=== PATIENT | male | born 1985 | race Caucasian/White ===

== ENCOUNTER 2023-10-27 02:15 | Emergency (ER) | payer OTHER ==
[2023-10-27 02:34] VITALS: TEMP 98.5
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
[2023-10-27 03:21] LABS: Absolute Neutrophil Ct (ANC) 4.96 x10^3/uL (1.78-5.38); BASOPHIL % 1.1 % (0.2-1.2); Basophil (Absolute #) 0.09 x10^3/uL (0.01-0.08); Eosinophil % 1.5 % (0.8-7.0); Eosinophil (Absolute #) 0.13 x10^3/uL (0.04-0.54); Hematocrit 46.7 % (40.1-51.0); Hemoglobin 15.9 g/dL (13.7-17.5); IMMATURE GRAN # 0.04 x10^3u/L (0.001-0.031); IMMATURE GRAN % 0.5 % (0.001-0.429); Lymphocyte (Absolute #) 2.71 x10^3/uL (1.32-3.57); Lymphocytes % 31.8 % (21.8-53.1); Mean Cell Volume 86.8 fL (79.0-92.2); Mean Corpuscular Hemoglobin 29.6 pg (25.7-32.2); Mean Platelet Volume 9.4 fL (9.4-12.4); Monocyte (Absolute #) 0.58 x10^3/uL (0.30-0.82); Monocytes % 6.8 % (5.3-12.2); Neutrophil % 58.3 % (34.0-67.9); Platelet Count 215 x10^3/uL (163-337); Red Blood Count 5.38 x10^6/uL (4.63-6.08); Red Cell Distribution Width 12.5 % (11.6-14.4); White Blood Count 8.5 x10^3/uL (4.23-9.07)
[2023-10-27 03:34] LABS: ALBUMIN 3.8 g/dL (3.5-5.0); ANION GAP 13.1 MEQ/L (5-15); BILIRUBIN,TOTAL 0.8 mg/dL (0.2-1.3); Calcium 9.2 mg/dL (8.4-10.2); Creatinine 1 1.09 mg/dL (0.66-1.25); EST GLOMERULAR FILTRATION RATE 89.1 ML/MIN; MAGNESIUM 2.1 mg/dL (1.6-2.3); Potassium 3.7 mmol/L (3.5-5.1); Total Protein 6.4 g/dL (6.3-8.2)
[2023-10-27] MEDS ORDERED: Sterile H2O 10 ml IJ ONE (03:57)
[2023-10-27] MEDS ORDERED: HYDROCODONE-ACETAMIN 2.5-108/5 ML SOLUTION ONE (03:58)
[2023-10-27] MEDS ORDERED: solu-MEDROL ONE (03:58)
[2023-10-27] MEDS: HYDROCODONE-ACETAMIN 2.5-108/5 ML SOLUTION PO STA (04:02)
[2023-10-27] MEDS: solu-MEDROL 125 MG, Sterile H2O 10 ml 2 ML IV ONE (04:02)
--- NOTE | 2023-10-27 04:42 | XRAY ---
CLINICAL HISTORY: Head injury COMPARISON: None. TECHNIQUE: Axial non-contrast CT scan of the brain was performed from the skull base to the high parietal region. One of the following dose reduction techniques were utilized for this exam: Automated exposure control, adjustment of the mA and/or kV according to patient size, use of iterative reconstruction. FINDINGS: Brain Parenchyma: Normal attenuation of the cerebral hemispheres, cerebellum, and brainstem. No evidence of acute infarct, hemorrhage, or mass effect. No abnormal areas of hypo- or hyperattenuation. Ventricular System: Ventricles are normal in size and configuration. No evidence of hydrocephalus or ventricular enlargement. Subarachnoid Spaces: Normal sulci and cisterns. No evidence of subarachnoid hemorrhage or extra-axial fluid collections. Cerebellum and Brainstem: Normal size and signal. No masses, lesions, or areas of abnormal signal. Orbits: Normal appearance of the globes, optic nerves, and extraocular muscles. No evidence of orbital masses or abnormal signal. Sinuses: Minimal mucosal thickening of few ethmoidal air cells. Mastoid Air Cells: Clear mastoid air cells. No evidence of mastoiditis. Skull and Meninges: Normal skull morphology. No evidence of meningeal thickening. Mild extracranial subgaleal hematoma in right high frontal region. IMPRESSION: 1. Normal CT of the head without contrast. 2. Mild extracranial subgaleal hematoma in right high frontal region and possibly in the left parietal region (clinical correlation is needed). Electronically Signed by: Best Ty MD. (10/27/2023 04:38:55 EDT)
[2023-10-27 05:04] VITALS: BP 119/50; PULSE 87; RESP 12
[2023-10-27 05:37] VITALS: O2SAT 98
--- NOTE | 2023-10-27 09:19 | XRAY ---
Indication: Pain following fall. Comparison: None AP/lateral right knee demonstrates small spurring tibial tuberosity. No other bony, articular, or soft tissue abnormalities.
--- NOTE | 2023-10-27 09:19 | XRAY ---
Indication: Cough. Comparison: None Portable chest inflated and clear. Heart not enlarged for AP portable technique. Bony thorax intact. Impression: Nonacute chest.
== END 2023-10-27 06:23 | disposition home or self-care (01) ==
LOC: ED 02:15
DX: R05.9 Cough, unspecified (principal); R55 Syncope and collapse; S09.90XA Unspecified injury of head, initial encounter; R06.02 Shortness of breath; W19.XXXA Unspecified fall, initial encounter; Z79.899 Other long term (current) drug therapy
CPT/HCPCS: 36000; 36415; 70450; 71045; 73560; 80053; 83735; 83880; 85025; 96374; 99284; J2919; A9270-GY

== ENCOUNTER 2023-11-01 16:36 | Emergency (ER) | payer OTHER ==
[2023-11-01 16:52] VITALS: TEMP 96
--- NOTE | 2023-11-01 16:59 | ERPHSYRPT ---
- History of Present Illness Time Seen by Provider: 11/01/23 16:59 Source: patient Exam Limitations: no limitations Patient Subjective Stated Complaint: pt states that he coughs one time and he passes out and today he coughed and passed out and hit the back left side of his head and right elbow Triage Nursing Assessment: Pt was brought to the ER by his mother, vitals wnl, rates pain as 8/10, lump to back left side of neck, abrasions to the right elbow, pulses normal, skin n/w/d, has been to this ER, [facility] and [facility] in the past 2 weeks, no difficulties with breathing Physician History: The patient, with a history of acid reflux managed with omeprazole, presents with a three-week history of recurrent coughing fits leading to syncope. The patient describes the episodes as sudden, occurring after a single, hard cough, and resulting in a brief loss of consciousness lasting about 20-30 seconds. The patient has sustained injuries from these episodes, including a large knot on the back of his head and a swollen right elbow from recent falls. The patient reports no prior history of such episodes. The onset of these symptoms coincided with the patient quitting smoking about a month ago, after a 20-year history of tobacco use. The patient also reports a recent weight loss of 20 pounds since June. The patient has not found any treatments that help stop the coughing fits. He was able to reproduce one of the episodes in the exam room today. Witnessed: by family Prior Episodes: multiple episodes today, recent history Timing/Duration: week(s) (3) Precipitating Factors: other (cough) Context: coughing Loss of Consciousness: brief (seconds) Charcter of event(s): collapsed Allergies/Adverse Reactions: baclofen Allergy (Verified 11/01/23 16:52) Benzodiazepines Allergy (Verified 11/01/23 16:52) citalopram [From Celexa] Allergy (Verified 11/01/23 16:52) Home Medications: Albuterol Sulfate [Proair Respiclick] 90 mcg IH DAILY 10/27/23 [History] Benzonatate 200 mg PO TID 10/27/23 [History] Dextroamphetamine/Amphetamine [Adderall Xr 20 mg Capsule] 60 mg PO DAILY 10/27/23 [History] Hydrocodone/Acetaminophen [Hydrocodone-Acetamin 10-325 mg] 1 each PO QID PRN PRN 10/27/23 [History] Omeprazole 40 mg PO BID 10/27/23 [History] Hx Tetanus, Diphtheria Vaccination/Date Given: Yes Hx Influenza Vaccination/Date Given: No Hx Pneumococcal Vaccination/Date Given: No Travel Risk - International Travel Have you traveled outside of the country in past 3 weeks: No - Emerging Infectious Disease Are you exhibiting symptoms associated with any current EIDs: No Symptoms: Shortness of Breath - Past Medical History Pertinent Past Medical History: Yes Neurological History: No Pertinent History ENT History: No Pertinent History Cardiac History: No Pertinent History Respiratory History: No Pertinent History Endocrine Medical History: No Pertinent History Musculoskeletal History: Fractures GI Medical History: GERD, Hernia History: No Pertinent History Psycho-Social History: Attention Deficit Disorder Male Reproductive Disorders: No Pertinent History Other Medical History: left pinky fractures, chronic back pain - Past Surgical History Past Surgical History: Yes Neuro Surgical History: No Pertinent History Cardiac: No Pertinent History Respiratory: No Pertinent History Gastrointestinal: No Pertinent History Genitourinary: No Pertinent History Musculoskeletal: Orthopedic Surgery Male Surgical History: No Pertinent History Other Surgical History: pins in pinky, endoscope in esophagus - Social History Smoking Status: Former smoker Exposure to second hand smoke: No Drug Use: marijuana - Social Determinants of Health Will the patient participate in the screening: Yes Do you worry about a steady place to live?: No Do you have any problems with any of the following?: No known problems In the past 12 months,have you had to go without utilities?: No Transportation Issues: No Has anyone in your support network made you feel unsafe?: No Have you or anyone in your house had to go without enough: No - Review of Systems All Other Systems: Reviewed and Negative Physical Exam - Nursing Vital Signs Nursing Vital Signs: Initial Vital Signs Temperature 96.0 F 11/01/23 16:42 Pulse Rate 76 11/01/23 16:42 Blood Pressure 121/78 11/01/23 16:42 O2 Sat by Pulse Oximetry 97 11/01/23 16:42 Pain Scale Pain Intensity 0 - Soledad Coma Scale Best Eye Response (Soledad): (4) open spontaneously Best Verbal Response (Yolanda): (5) oriented Best Motor Response (Soledad): (6) obeys commands Soledad Total: 15 - Physical Exam General Appearance: no apparent distress, obese Eye Exam: bilateral eye: normal inspection, PERRL, EOMI Ears, Nose, Throat Exam: normal ENT inspection, pharynx normal Neck Exam: normal inspection, non-tender, supple, full range of motion, other (large neck circumference), No carotid bruit Respiratory: normal breath sounds, lungs clear, airway intact, No respiratory distress Cardiovascular: regular rate/rhythm, normal heart sounds, capillary refill <2 sec Peripheral Pulses: carotid (R): 2+, carotid (L): 2+ Mental Status: alert, oriented x 3, 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 Exam: normal hearing, normal speech, PERRL, tongue midline Coordination/Gait: normal finger to nose, normal gait, normal cerebellar function Motor/Sensory: no motor deficit, no sensory deficit, no pronator drift Skin Exam: normal color, warm, dry SpO2 Interpretation: normal SpO2: 96 O2 Delivery: Room Air - Course Nursing assessment & vital signs reviewed: Yes Ordered Tests: Medication Summary Discontinued Medications Generic Name Dose Route Start Last Admin Trade Name Chitoq PRN Reason Stop Dose Admin Gabapentin 300 mg 11/01/23 17:29 11/01/23 17:42 Gabapentin 300 Mg Capsule PO 11/01/23 17:30 300 mg STAT ONE Administration Metoclopramide HCl 10 mg 11/01/23 17:51 11/01/23 17:58 Metoclopramide Hcl 10 Mg Tablet PO 11/01/23 17:52 10 mg STAT ONE Administration Metoclopramide HCl Confirm 11/01/23 17:55 Metoclopramide Hcl 10 Mg Tablet Administered 11/01/23 17:56 Dose 10 mg .ROUTE .STK-MED ONE - Progress Progress: unchanged Progress Note: Cough Syncope Recent onset of syncope with coughing. Discussed the pathophysiology of cough syncope and the lack of definitive treatment. Proposed trial of Gabapentin based on a study in a respiratory care journal. -Start Gabapentin 300mg daily, increase by 100mg every two weeks as tolerated. -Encouraged weight loss and control of acid reflux as potential mitigating factors. Elbow Injury Recent injury to the right elbow from a fall during a syncopal episode. -Order elbow X-ray to rule out fracture. GERD Patient on Omeprazole 80mg daily for the past two years. -Continue Omeprazole 80mg daily. -Add Reglan based on multiple case studies of patients with cough syncope having cough relief with addition of Reglan to PPI. Outpatient Workup Discussed the need for outpatient workup including carotid ultrasounds and tilt table tests to rule out other causes of syncope. -Encouraged patient to follow up with primary care provider for further workup. NO DRIVING UNTIL THIS IS RESOLVED. Counseled pt/family regarding: diagnosis, need for follow-up Medical Desision Making - Diagnostic Testing Diagnostic test were ordered, analyzed, and reviewed by me: No - Risk of complications The pt has a mod risk of morbidity or mortality based on: Need for prescription drug management - Departure Departure Disposition: Home Clinical Impression: Cough syncope syndrome Condition: Good Critical Care Time: No Referrals: RACHELE CHAVIS [Primary Care Provider] - Follow up/PCP as directed Instructions: Cough, Adult (DC) Additional Instructions: Do not drive or operate heavy machinery. Please follow up with primary care physician for thorough cardiac and neuro evaluation to rule out other underlying causes. Prescriptions: Gabapentin 300 mg PO DAILY 90 Days #90 cap Metoclopramide HCl [Reglan] 10 mg PO TID 30 Days #90 tablet
[2023-11-01] MEDS: NEURONTIN PO ONE (17:42)
[2023-11-01] MEDS ORDERED: Reglan 10 MG ONE (17:55)
[2023-11-01] MEDS: Reglan 10 MG PO ONE (17:58)
[2023-11-01 18:09] VITALS: BP 127/62; PULSE 78; RESP 20
[2023-11-04 07:25] VITALS: O2SAT 96
== END 2023-11-01 18:19 | disposition home or self-care (01) ==
LOC: ED 16:36
DX: R55 Syncope and collapse (principal); R05.9 Cough, unspecified; S10.93XA Contusion of unspecified part of neck, initial encounter; S50.01XA Contusion of right elbow, initial encounter
CPT/HCPCS: 99282; A9270-GY

== ENCOUNTER 2023-12-21 22:46 | Emergency (ER) | payer OTHER ==
[2023-12-21 22:57] VITALS: TEMP 97.6
--- NOTE | 2023-12-21 22:57 | ERPHSYRPT ---
- History of Present Illness Time Seen by Provider: 12/21/23 22:56 Source: patient Exam Limitations: no limitations Physician History: This is a 38-year-old white male patient who within the last couple months for his having coughing spells causing syncopal episodes. On one of the episodes, the patient fell and hit his right elbow. According to the patient, the x-ray was performed at an outside facility and had a chip fracture present. Patient did not have any problems until the last couple of days but he noticed some sudden onset of swelling and mild warmth and thought he better have it evaluated. He comes in to the emergency department today by private vehicle with no fever. He has only mild pain to palpation in the soft tissue swelling around the right elbow. Occurred: days ago (Swelling has increased over the last 2 days), other (The injury occurred several weeks ago.) Method of Injury: direct blow Quality: aching Severity of Pain-Max: mild Severity of Pain-Current: mild Extremities Pain Location: elbow: right (Soft tissue/subcutaneous swelling) Modifying Factors: Improves With: movement Associated Symptoms: none Allergies/Adverse Reactions: baclofen Allergy (Verified 11/01/23 16:52) Benzodiazepines Allergy (Verified 11/01/23 16:52) citalopram [From Celexa] Allergy (Verified 11/01/23 16:52) Home Medications: Albuterol Sulfate [Proair Respiclick] 90 mcg IH DAILY 10/27/23 [History] Benzonatate 200 mg PO TID 10/27/23 [History] Dextroamphetamine/Amphetamine [Adderall Xr 20 mg Capsule] 60 mg PO DAILY 10/27/23 [History] Hydrocodone/Acetaminophen [Hydrocodone-Acetamin 10-325 mg] 1 each PO QID PRN PRN 10/27/23 [History] Omeprazole 40 mg PO BID 10/27/23 [History] Hx Tetanus, Diphtheria Vaccination/Date Given: Yes Hx Influenza Vaccination/Date Given: No Hx Pneumococcal Vaccination/Date Given: No Travel Risk - International Travel Have you traveled outside of the country in past 3 weeks: No - Emerging Infectious Disease Are you exhibiting symptoms associated with any current EIDs: No Symptoms: Shortness of Breath - Review of Systems Constitutional: No Symptoms Eyes: No Symptoms Ears, Nose, & Throat: No Symptoms Respiratory: No Symptoms Cardiac: No Symptoms Abdominal/Gastrointestinal: No Symptoms Genitourinary Symptoms: No Symptoms Musculoskeletal: Injury (Occurred within the last few weeks but no new injury recently), Joint Pain (Soft tissue/skin swelling overlying right elbow joint) Skin: No Symptoms Neurological: No Symptoms Psychological: No Symptoms Endocrine: No Symptoms Hematologic/Lymphatic: No Symptoms Immunological/Allergic: No Symptoms All Other Systems: Reviewed and Negative - Past Medical History Pertinent Past Medical History: Yes Neurological History: No Pertinent History ENT History: No Pertinent History Cardiac History: No Pertinent History Respiratory History: No Pertinent History Endocrine Medical History: No Pertinent History Musculoskeletal History: Fractures GI Medical History: GERD, Hernia History: No Pertinent History Psycho-Social History: Attention Deficit Disorder Male Reproductive Disorders: No Pertinent History Other Medical History: left pinky fractures, chronic back pain - Past Surgical History Past Surgical History: Yes Neuro Surgical History: No Pertinent History Cardiac: No Pertinent History Respiratory: No Pertinent History Gastrointestinal: No Pertinent History Genitourinary: No Pertinent History Musculoskeletal: Orthopedic Surgery Male Surgical History: No Pertinent History Other Surgical History: pins in pinky, endoscope in esophagus - Social History Smoking Status: Former smoker Exposure to second hand smoke: No Drug Use: marijuana - Social Determinants of Health Will the patient participate in the screening: Yes Do you worry about a steady place to live?: No In the past 12 months,have you had to go without utilities?: No Transportation Issues: No Has anyone in your support network made you feel unsafe?: No Have you or anyone in your house had to go without enough: No - Nursing Vital Signs Nursing Vital Signs: Initial Vital Signs Temperature 97.6 F 12/21/23 22:56 Pulse Rate 90 12/21/23 22:56 Respiratory Rate 21 12/21/23 22:56 Blood Pressure 112/71 12/21/23 22:56 O2 Sat by Pulse Oximetry 96 12/21/23 22:56 Pain Scale Pain Intensity 6 - Physical Exam General Appearance: no apparent distress, alert, anxiety, obese Eyes, Ears, Nose, Throat Exam: normal ENT inspection, moist mucous membranes Neck Exam: normal inspection, non-tender, supple, full range of motion Cardiovascular/Respiratory Exam: chest non-tender, no respiratory distress Abdominal Exam: non-tender Back Exam: normal inspection, normal range of motion, No CVA tenderness, No vertebral tenderness Shoulder Exam: normal inspection, non-tender, no evidence of injury, normal ROM Elbow/Forearm Exam: normal ROM, soft tissue tenderness, swelling (Soft tissue swelling overlying right elbow joint. Ballotable with sensation and sound of fluid present) Wrist Exam: normal inspection, non-tender, no evidence of injury, normal ROM Hand Exam: normal inspection, non-tender, no evidence of injury, normal ROM Neuro/Tendon Exam: normal sensation, normal motor functions, normal tendon functions, responds to pain, no evidence tendon injury Mental Status Exam: alert, oriented x 3, cooperative Skin Exam: normal color, warm, dry SpO2 Interpretation: normal O2 Delivery: Room Air - Course Nursing assessment & vital signs reviewed: Yes Ordered Tests: Medication Summary Discontinued Medications Generic Name Dose Route Start Last Admin Trade Name Freq PRN Reason Stop Dose Admin Ceftriaxone Sodium 1,000 mg 12/21/23 23:06 Ceftriaxone Sodium 1000 Mg Inj Vial IM 12/21/23 23:07 STAT ONE Methylprednisolone Sodium 0 mg 12/21/23 23:06 Succinate 125 mg/ Sterile IM 12/21/23 23:07 Water 2 ml STAT ONE - Progress Progress: unchanged, pain not gone completely Progress Note: 12/21/23 23:14 My medical decision making and the assignment of low complexity to this patient's medical issue today is secondary to review of the patient's past medical history, review patient medication list, reviewed patient drug allergy list, history present of some physical findings on examination. The workup in this patient does not require any radiographic or laboratory studies at this time. The plan for him is to provide him with an injection of Rocephin intramuscularly and Solu-Medrol intramuscularly followed by outpatient take-home tablets (number 2 tablets) of oxycodone acetaminophen 5/325. Patient then will follow-up at the orthopedic clinic here at [facility] tomorrow morning, 12/22/2023. Counseled pt/family regarding: diagnosis, need for follow-up Medical Desision Making - Risk of complications Minimal Risk: Minimal risk of morbidity - Departure Departure Disposition: Home Clinical Impression: Bursitis of right elbow Condition: Stable Critical Care Time: No Referrals: RACHELE CHAVIS [Primary Care Provider] - Follow up/PCP as directed Additional Instructions: Follow-up with [facility] orthopedic clinic tomorrow, 12/22/2023, at 8 AM for further evaluation management of your right elbow bursitis.
[2023-12-21] MEDS ORDERED: Rocephin 1000 MG INJ ONE (23:09)
[2023-12-21] MEDS ORDERED: Sterile H2O 10 ml IJ ONE (23:09)
[2023-12-21] MEDS ORDERED: solu-MEDROL ONE (23:09)
[2023-12-21] MEDS ORDERED: XYLOCAINE 1% HCL 20 ML MDV ONE (23:09)
[2023-12-21] MEDS: Rocephin 1000 MG INJ IM ONE (23:18)
[2023-12-21] MEDS: solu-MEDROL 125 MG, Sterile H2O 10 ml 2 ML IM ONE (23:19)
[2023-12-21 23:31] VITALS: BP 112/74; PULSE 98; RESP 20; O2SAT 95
== END 2023-12-21 23:34 | disposition home or self-care (01) ==
LOC: ED 22:46
DX: M70.31 Other bursitis of elbow, right elbow (principal); Z79.899 Other long term (current) drug therapy; M25.521 Pain in right elbow
CPT/HCPCS: 96372; 99283; J0696; J2919

== ENCOUNTER 2024-03-10 00:52 | Observation (INO) | payer OTHER ==
--- NOTE | 2024-03-10 01:15 | ERPHSYRPT ---
- History of Present Illness Time Seen by Provider: 03/10/24 01:14 Historian: patient, family Exam Limitations: no limitations Physician History: This is a an obese 39-year-old white male patient that arrives to the emergency department by private vehicle with complaint of left lower quad abdominal pain with no vomiting or nausea but mild diarrheal episodes. Patient denies fever. Patient denies cough. He does not have bodyaches. Patient has had 5 colonoscopies in the past but no other intra-abdominal procedures. Patient has a history of irritable bowel syndrome, chronic low back pain, ADD and gastroesophageal reflux disease. He denies chest pain and he denies shortness of breath Timing/Duration: hour(s) (24), worse Quality: sharpness Abdominal Pain Onset Location: LLQ Severity of Pain-Max: moderate Severity of Pain-Current: moderate Modifying Factors: Improves With: nothing Associated Symptoms: diarrhea Previous symptoms: no prior history, no recent treatment Allergies/Adverse Reactions: baclofen Allergy (Verified 12/21/23 23:21) Benzodiazepines Allergy (Verified 12/21/23 23:21) citalopram [From Celexa] Allergy (Verified 12/21/23 23:21) Home Medications: Albuterol Sulfate [Proair Respiclick] 90 mcg IH DAILY 10/27/23 [History] Dextroamphetamine/Amphetamine [Adderall Xr 20 mg Capsule] 60 mg PO DAILY 10/27/23 [History] Hydrocodone/Acetaminophen [Hydrocodone-Acetamin 10-325 mg] 1 each PO QID PRN PRN 10/27/23 [History] Omeprazole 40 mg PO BID 10/27/23 [History] Hx Tetanus, Diphtheria Vaccination/Date Given: Yes Hx Influenza Vaccination/Date Given: No Hx Pneumococcal Vaccination/Date Given: No Travel Risk - International Travel Have you traveled outside of the country in past 3 weeks: No - Emerging Infectious Disease Are you exhibiting symptoms associated with any current EIDs: No Symptoms: Shortness of Breath - Review of Systems Constitutional: No Symptoms Eyes: No Symptoms Ears, Nose, & Throat: No Symptoms Respiratory: No Symptoms Cardiac: No Symptoms Abdominal/Gastrointestinal: Abdominal Pain (Left lower quadrant), Diarrhea, Appetite Changes Genitourinary Symptoms: No Symptoms Musculoskeletal: No Symptoms Skin: No Symptoms Neurological: No Symptoms Psychological: No Symptoms Endocrine: No Symptoms Hematologic/Lymphatic: No Symptoms Immunological/Allergic: No Symptoms All Other Systems: Reviewed and Negative - Past Medical History Pertinent Past Medical History: Yes Neurological History: No Pertinent History ENT History: No Pertinent History Cardiac History: No Pertinent History Respiratory History: No Pertinent History Endocrine Medical History: No Pertinent History Musculoskeletal History: Fractures GI Medical History: GERD, Hernia History: No Pertinent History Psycho-Social History: Attention Deficit Disorder Male Reproductive Disorders: No Pertinent History Other Medical History: left pinky fractures, chronic back pain - Past Surgical History Past Surgical History: Yes Neuro Surgical History: No Pertinent History Cardiac: No Pertinent History Respiratory: No Pertinent History Gastrointestinal: No Pertinent History Genitourinary: No Pertinent History Musculoskeletal: Orthopedic Surgery Male Surgical History: No Pertinent History Other Surgical History: pins in pinky, endoscope in esophagus - Social History Smoking Status: Former smoker How long have you smoked: 20 yrs Exposure to second hand smoke: No Drug Use: marijuana - Social Determinants of Health Will the patient participate in the screening: Yes Do you worry about a steady place to live?: No In the past 12 months,have you had to go without utilities?: No Transportation Issues: No Has anyone in your support network made you feel unsafe?: No Have you or anyone in your house had to go without enough: No - Nursing Vital Signs Nursing Vital Signs: Initial Vital Signs Pulse Rate 96 H 03/10/24 01:30 Respiratory Rate 21 03/10/24 01:30 Blood Pressure 140/97 03/10/24 01:30 O2 Sat by Pulse Oximetry 95 03/10/24 01:30 Pain Scale Pain Intensity 7 - Physical Exam General Appearance: mild distress, alert, anxiety, obese Eye Exam: PERRL/EOMI, eyes nml inspection Ears, Nose, Throat Exam: normal ENT inspection, moist mucous membranes Neck Exam: normal inspection, non-tender, supple, full range of motion Respiratory Exam: normal breath sounds, lungs clear, airway intact, No chest tenderness, No respiratory distress Cardiovascular Exam: regular rate/rhythm, normal heart sounds, normal peripheral pulses Gastrointestinal/Abdomen Exam: soft, normal bowel sounds, tenderness (Left lower quadrant to palpation), guarding (Left lower quadrant to palpation) Rectal Exam: not done Back Exam: normal inspection, normal range of motion, No CVA tenderness, No vertebral tenderness Extremity Exam: normal inspection, normal range of motion, pelvis stable Neurologic Exam: alert, oriented x 3, 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, 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, nml cerebellar function, nml station & gait, sensation nml Skin Exam: normal color, warm, dry Lymphatic Exam: No adenopathy SpO2 Interpretation: normal O2 Delivery: Room Air - Course Nursing assessment & vital signs reviewed: Yes Ordered Tests: Active Orders 24 hr Category Date Time Status IV Insertion STAT Care 03/10/24 01:52 Active ABDOMEN AND PELVIS W/0 CONTRAS [CT] Stat Exams 03/10/24 01:52 Completed AMYLASE Stat Lab 03/10/24 02:05 Completed CBC W DIFF Stat Lab 03/10/24 02:05 Completed CMP Stat Lab 03/10/24 02:05 Completed LIPASE Stat Lab 03/10/24 02:05 Completed UA W/RFX UR CULTURE Stat Lab 03/10/24 03:11 Completed Medication Summary Generic Name Dose Route Start Last Admin Trade Name Freq PRN Reason Stop Dose Admin Metronidazole 500 mg in 100 mls @ 200 mls/hr 03/10/24 05:41 Flagyl 500 Mg Ivpb IV 03/10/24 06:10 STAT STA Sodium Chloride 1,000 mls @ 100 mls/hr 03/10/24 05:45 Sodium Chloride 0.9% 1000 Ml IV 04/09/24 05:44 .Q10H EL Discontinued Medications Generic Name Dose Route Start Last Admin Trade Name Freq PRN Reason Stop Dose Admin Methylprednisolone Sodium 0 mg 03/10/24 05:41 Succinate 125 mg/ Sterile IV 03/10/24 05:42 Water 2 ml STAT ONE Hydromorphone HCl 1 mg 03/10/24 01:52 03/10/24 01:59 Hydromorphone 1 Mg/1ml Inj IV 03/10/24 01:53 1 mg STAT ONE Administration Hydromorphone HCl Confirm 03/10/24 01:56 Hydromorphone 1 Mg/1ml Inj Administered 03/10/24 01:57 Dose 1 mg .ROUTE .STK-MED ONE Hydromorphone HCl 1 mg 03/10/24 05:41 Hydromorphone 1 Mg/1ml Inj IV 03/10/24 05:42 STAT ONE Sodium Chloride 1,000 mls @ 999 mls/hr 03/10/24 01:52 03/10/24 03:51 Sodium Chloride 0.9% 1000 Ml IV 03/10/24 02:52 Infused .Q1H1M STA Infusion Sodium Chloride Confirm 03/10/24 01:56 Sodium Chloride 0.9% 1000 Ml Administered 03/10/24 01:57 Dose 1,000 mls @ ud .ROUTE .STK-MED ONE Sodium Chloride 1,000 mls @ 999 mls/hr 03/10/24 03:26 03/10/24 05:24 Sodium Chloride 0.9% 1000 Ml IV 03/10/24 04:26 Infused .Q1H1M STA Infusion Sodium Chloride Confirm 03/10/24 03:42 Sodium Chloride 0.9% 1000 Ml Administered 03/10/24 03:43 Dose 1,000 mls @ ud .ROUTE .STK-MED ONE Metronidazole Confirm 03/10/24 05:50 Flagyl 500 Mg Ivpb Administered 03/10/24 05:51 Dose 500 mg in 100 mls @ ud IV .STK-MED ONE Ketorolac Tromethamine 30 mg 03/10/24 03:40 03/10/24 03:45 Ketorolac Tromethamine 30 Mg/Ml Inj IV 03/10/24 03:41 30 mg STAT ONE Administration Ketorolac Tromethamine Confirm 03/10/24 03:42 Ketorolac Tromethamine 30 Mg/Ml Inj Administered 03/10/24 03:43 Dose 30 mg .ROUTE .STK-MED ONE Methylprednisolone Sodium Succinate Confirm 03/10/24 05:50 Methylprednis Sod Succ 125 Mg/2 Ml Vial Administered 03/10/24 05:51 Dose 125 mg .ROUTE .STK-MED ONE Ondansetron HCl 4 mg 03/10/24 01:52 03/10/24 01:59 Ondansetron Hcl 4 Mg/2 Ml Vial IV 03/10/24 01:53 4 mg STAT ONE Administration Ondansetron HCl Confirm 03/10/24 01:55 Ondansetron Hcl 4 Mg/2 Ml Vial Administered 03/10/24 01:56 Dose 4 mg .ROUTE .STK-MED ONE Sterile Water Confirm 03/10/24 05:50 Water For Injection,Sterile 10 Ml Vial Administered 03/10/24 05:51 Dose 10 ml IJ .STK-MED ONE Lab/Rad Data: Laboratory Result Diagrams 03/10/24 02:05 03/10/24 02:05 Laboratory Results 03/10/24 03/10/24 03/10/24 Range/Units 03:11 02:05 02:05 WBC 8.7 (4.23-9.07) x10^3/uL RBC 6.36 H (4.63-6.08) x10^6/uL Hgb 18.5 H (13.7-17.5) g/dL Hct 53.5 H (40.1-51.0) % MCV 84.1 (79.0-92.2) fL MCH 29.1 (25.7-32.2) pg MCHC 34.6 (32.3-36.5) g/dL RDW 12.5 (11.6-14.4) % Plt Count 268 (163-337) x10^3/uL MPV 10.5 (9.4-12.4) fL Gran % 76.2 H (34.0-67.9) % Immature Gran % (Auto) 0.8 H (0.001-0.429) % Nucleat RBC Rel Count 0.0 (0.00-0.2) % Eos # (Auto) 0.06 (0.04-0.54) x10^3/uL Immature Gran # (Auto) 0.07 H (0.001-0.031) x10^3u/L Absolute Lymphs (auto) 1.37 (1.32-3.57) x10^3/uL Absolute Monos (auto) 0.50 (0.30-0.82) x10^3/uL Absolute Nucleated RBC 0.00 (0.00-0.012) x10^3u/L Lymphocytes % 15.8 L (21.8-53.1) % Monocytes % 5.8 (5.3-12.2) % Eosinophils % 0.7 L (0.8-7.0) % Basophils % 0.7 (0.2-1.2) % Absolute Granulocytes 6.59 H (1.78-5.38) x10^3/uL Basophils # 0.06 (0.01-0.08) x10^3/uL Sodium 138 (135-145) mmol/L Potassium 4.1 (3.5-5.1) mmol/L Chloride 104 (98-107) mmol/L Carbon Dioxide 18 L (22-30) mmol/L Anion Gap 19.0 H (5-15) MEQ/L BUN 14 (9-20) mg/dL Creatinine 1.14 (0.66-1.25) mg/dL Estimated GFR 83.9 ML/MIN Glucose 98 (74-106) mg/dL Calcium 9.6 (8.4-10.2) mg/dL Total Bilirubin 1.40 H (0.2-1.3) mg/dL AST 42 (17-59) U/L ALT 58 H (0-50) U/L Alkaline Phosphatase 57 (38-126) U/L Serum Total Protein 7.5 (6.3-8.2) g/dL Albumin 4.6 (3.5-5.0) g/dL Amylase 43 (30-110) U/L Lipase 34 (23-300) U/L Urine Color Dark Yellow (Yellow) Urine Appearance Clear (Clear) Urine pH 5.0 (4.6-8.0) Ur Specific [place] 1.025 (1.005-1.030) Urine Protein Trace A (Negative) Urine Glucose (UA) Negative (Negative) mg/dL Urine Ketones Trace A (Negative) Urine Blood Negative (Negative) Urine Nitrite Negative (Negative) Urine Bilirubin Negative (Negative) Urine Urobilinogen 1.0 A (0.2) mg/dL Ur Leukocyte Esterase Negative (Negative) U Hyaline Cast (Auto) NONE SEEN (0-2) /LPF Urine Microscopic RBC 0-2 (0-5) /HPF Urine Microscopic WBC 0-2 (0-5) /HPF Ur Epithelial Cells None Seen (None Seen) /HPF Urine Bacteria None Seen (None Seen) /HPF Urine Culture Reflexed NO (NO) - Progress Progress: improved, pain not gone completely, re-examined Progress Note: 03/10/24 02:15 My medical decision making and the assignment of moderate complexity is based on review of the patient's past medical history, review the patient's medication list, reviewed patient drug allergy list, history present illness and physical findings on examination. The workup in this patient includes placement of an intravenous line, infusion of crystalloid solution, infusion of Zofran and Dila udid, amylase, lipase, urinalysis, CBC, CMP, CT scan of the abdomen and pelvis without contrast. Differential diagnosis includes was not limited to pancreatitis, colitis, diverticulitis, pyelonephritis, ureterolithiasis 03/10/24 05:[address] scan of the abdomen pelvis without contrast was interpreted by the radiologist and I reviewed the impression. The CT impression states no inflamed appendix. Dilated loops of small bowel with air-fluid levels and intervening collapsed ileal loops segments likely SBO obstruction due to inflammatory bowel disease. Large bowel loops normal. Jejunal loops normal. There is no free air or free fluid I consulted Dr. Sidhu, the general surgeon for a consultation. They will be available today for general surgery consultation. 03/10/24 05:[address] Pritchard, our hospitalist on-call at this time. I reviewed the patient presenting complaint, past medical history, physical findings examination and our workup and its results. He accepts the patient to be placed in observation Counseled pt/family regarding: lab results, diagnosis, rad results Medical Desision Making - Diagnostic Testing Diagnostic test were ordered, analyzed, and reviewed by me: Yes Radiological Interpretation: Reviewed by me, Teleradiologist Report - Risk of complications The pt has a high risk of morbidity or mortality based on: Decision regarding hospitilization or escalation of hosp level of care - Departure Departure Disposition: Observation Clinical Impression: Small bowel obstruction, Vomiting Condition: Stable Critical Care Time: No Referrals: RACHELE CHAVIS [Primary Care Provider] - Follow up/PCP as directed
[2024-03-10] MEDS ORDERED: Zofran 4 MG/2 ML VIAL ONE (01:55)
[2024-03-10] MEDS ORDERED: Sodium Chloride 0.9% 1000 ML 1,000 ML ONE ×2 (01:56→03:42)
[2024-03-10] MEDS ORDERED: Hydromorphone 1 mg/ml Injection ONE ×2 (01:56→06:41)
[2024-03-10] MEDS: Sodium Chloride 0.9% 1000 ML 1,000 ML IV STA ×2 (01:58→03:45)
[2024-03-10] MEDS: Zofran 4 MG/2 ML VIAL IV ONE (01:59)
[2024-03-10] MEDS: Hydromorphone 1 mg/ml Injection IV ONE ×2 (01:59→06:42)
[2024-03-10 02:10] LABS: Absolute Neutrophil Ct (ANC) 6.59 x10^3/uL (1.78-5.38); BASOPHIL % 0.7 % (0.2-1.2); Basophil (Absolute #) 0.06 x10^3/uL (0.01-0.08); Eosinophil % 0.7 % (0.8-7.0); Eosinophil (Absolute #) 0.06 x10^3/uL (0.04-0.54); Hematocrit 53.5 % (40.1-51.0); Hemoglobin 18.5 g/dL (13.7-17.5); IMMATURE GRAN # 0.07 x10^3u/L (0.001-0.031); IMMATURE GRAN % 0.8 % (0.001-0.429); Lymphocyte (Absolute #) 1.37 x10^3/uL (1.32-3.57); Lymphocytes % 15.8 % (21.8-53.1); Mean Cell Volume 84.1 fL (79.0-92.2); Mean Corpuscular Hemoglobin 29.1 pg (25.7-32.2); Mean Corpuscular Hgb Concent. 34.6 g/dL (32.3-36.5); Mean Platelet Volume 10.5 fL (9.4-12.4); Monocytes % 5.8 % (5.3-12.2); Neutrophil % 76.2 % (34.0-67.9); Platelet Count 268 x10^3/uL (163-337); Red Blood Count 6.36 x10^6/uL (4.63-6.08); Red Cell Distribution Width 12.5 % (11.6-14.4); White Blood Count 8.7 x10^3/uL (4.23-9.07)
[2024-03-10 02:25] LABS: ALBUMIN 4.6 g/dL (3.5-5.0); BILIRUBIN,TOTAL 1.4 mg/dL (0.2-1.3); Calcium 9.6 mg/dL (8.4-10.2); Creatinine 1 1.14 mg/dL (0.66-1.25); EST GLOMERULAR FILTRATION RATE 83.9 ML/MIN; Potassium 4.1 mmol/L (3.5-5.1); Total Protein 7.5 g/dL (6.3-8.2)
[2024-03-10 03:21] LABS: Appearance Clear (Clear); Bacteria None Seen /HPF (None Seen); Bilirubin Negative (Negative); Blood Negative (Negative); Epithelial Cells None Seen /HPF (None Seen); Glucose, Urine Negative (Negative); Hyaline Casts NONE SEEN /LPF (0-2); Ketones Trace (Negative); Leukocyte Esterase Negative (Negative); Nitrite Negative (Negative); Protein,Urine Dip Trace (Negative); RBC 0-2 /HPF (0-5); Specific Gravity 1.025 (1.005-1.030); WBC 0-2 /HPF (0-5)
--- NOTE | 2024-03-10 03:39 | XRAY ---
CLINICAL HISTORY: LLQ ABD pain; diarrhea COMPARISON: None. TECHNIQUE: Contiguous axial images were obtained from the level of the diaphragm to the pubic symphysis without intravenous or oral contrast. Coronal and sagittal reconstructions were likewise performed and indicated to increase the sensitivity for detecting clinically relevant pathology. CT scan was performed according to ALARA (as low as reasonable achievable). FINDINGS: The visualized lung bases are clear. Hepatic steatosis seen. Evaluation of the abdominal and pelvic visceral organs is limited without intravenous contrast. The unenhanced , spleen, pancreas, and adrenal glands are grossly unremarkable. The gallbladder is present. The kidneys are normal in size and attenuation without obvious calcification. There is no hydronephrosis or perinephric stranding. The ureters are normal in caliber. Dilated ileal loops (diameter up to 3.7 cm) with air fluid level and small bowel feces sign present, with intervening collapsed ileal loop segments. Large bowel is unremarkable. Jejunal loops appear normal. No evidence of inflamed appendix. No adenopathy or fluid collections are seen. The aorta is normal in caliber. The urinary bladder is normal in contour. Pelvic viscera are grossly unremarkable. No aggressive appearing osseous lesions are identified. IMPRESSION: Hepatic steatosis. Dilated ileal loops (diameter up to 3.7 cm) with air fluid level and small bowel feces sign present, with intervening collapsed ileal loop segments. Likely small bowel obstruction due to inflammatory etiology (sequelae of inflammatory bowel disease). Advised clinical correlation and further evaluation. Electronically Signed by: Juan A Marc MD. (03/10/2024 03:35:25 EST)
[2024-03-10] MEDS ORDERED: TORAdol 30 mg Injection ONE (03:42)
[2024-03-10] MEDS: TORAdol 30 mg Injection IV ONE (03:45)
[2024-03-10] MEDS ORDERED: FLAGYL 500 MG IVPB 500 MG/100 ML BAG IV ONE (05:50)
[2024-03-10] MEDS ORDERED: solu-MEDROL ONE (05:50)
[2024-03-10] MEDS ORDERED: Sterile H2O 10 ml IJ ONE (05:50)
[2024-03-10] MEDS: solu-MEDROL 125 MG, Sterile H2O 10 ml 2 ML IV ONE (05:51)
[2024-03-10] MEDS: FLAGYL 500 MG IVPB 500 MG/100 ML BAG IV STA (05:52)
[2024-03-10] MEDS: Sodium Chloride 0.9% 1000 ML 1,000 ML IV SCH (05:55)
[2024-03-10] MEDS ORDERED: Zofran 4 MG/2 ML VIAL IV PRN (07:00)
[2024-03-10] MEDS ORDERED: FEVERALL 650 MG PR PRN (07:00)
--- NOTE | 2024-03-10 08:00 | PCM.HP ---
History of Present Illness - Chief Complaint Chief Complaint: Small bowel obstruction Date: 03/10/24 History of Present Illness: is a 39 year old male with PMHX of irritable bowel syndrome, chronic low back pain, ADD, and gastroesophageal reflux disease. Patient arrived to the emergency department today by private vehicle with complaint of left lower quad abdominal pain with no vomiting or nausea but mild diarrheal episodes. Sxs started 12 pm Thursday. He has not ate or drank since. He could not stand the pain any longer so came to the hospital. Patient denies fever, cough, chest pain, shortness of breath. He does not have bodyaches- Flu/COVID/RSV pending. Patient has had 5 colonoscopies in the past but no other intra-abdominal procedures. He reports a strong family hx of colorectal cancer and has had colonoscopies Q3 yrs. He is resting comfortably in the bed. Surgery consulted. IVF started and made NPO. PRN pain meds added. He denies any further concerns at this time. - Review of Systems Constitutional: No Fever, No Chills Eyes: No Symptoms Ears, Nose, & Throat: No Symptoms Respiratory: No Cough, No Short Of Breath Cardiac: No Chest Pain, No Edema, No Syncope Abdominal/Gastrointestinal: Abdominal Pain, No Nausea, No Vomiting, No Diarrhea Genitourinary Symptoms: No Dysuria Musculoskeletal: No Back Pain, No Neck Pain Skin: No Rash Neurological: No Dizziness, No Focal Weakness, No Sensory Changes Psychological: No Symptoms Endocrine: No Symptoms Hematologic/Lymphatic: No Symptoms Immunological/Allergic: No Symptoms Medications & Allergies Home Medications: Home Medication List Albuterol Sulfate [Proair Respiclick] 90 mcg IH DAILY PRN 10/27/23 [History Confirmed 03/10/24] Dextroamphetamine/Amphetamine [Adderall Xr 20 mg Capsule] 20 mg PO TID 10/27/23 [History Confirmed 03/10/24] Omeprazole 40 mg PO BID 10/27/23 [History Confirmed 03/10/24] Gabapentin 300 mg PO DAILY 90 Days #90 cap 11/01/23 [Rx Confirmed 03/10/24] Hydrocodone/Acetaminophen [Hydrocodone-Acetamin 7.5-325] 1 tab PO UD PRN 03/10/24 [History Confirmed 03/10/24] Allergies/Adverse Reactions: Allergies Allergy/AdvReac Type Severity Reaction Status Date / Time baclofen Allergy Verified 12/21/23 23:21 Benzodiazepines Allergy Verified 12/21/23 23:21 citalopram [From Celexa] Allergy Verified 12/21/23 23:21 - Past Medical History Past Medical History: Yes Neurological History: No Pertinent History ENT History: No Pertinent History Cardiac History: No Pertinent History Respiratory History: No Pertinent History Endocrine Medical History: No Pertinent History Musculoskelatal History: Fractures GI Medical History: GERD, Hernia History: No Pertinent History Pyscho-Social History: Attention Deficit Disorder Male Reproductive Disorders: No Pertinent History Comment: left pinky fractures, chronic back pain - Past Surgical History Past Surgical History: Yes Neuro Surgical History: No Pertinent History Cardiac History: No Pertinent History Respiratory Surgery: No Pertinent History GI Surgical History: No Pertinent History Genitourinary Surgical Hx: No Pertinent History Musculskeletal Surgical Hx: Orthopedic Surgery Male Surgical History: No Pertinent History Other Surgical History: pins in pinky, endoscope in esophagus - Social History Smoking Status: Former smoker How long have you smoked: 20 yrs Exposure to second hand smoke: No Alcohol: None Drug Use: marijuana - Social Determinants of Health Will the patient participate in the screening: Yes Do you worry about a steady place to live?: No In the past 12 months,have you had to go without utilities?: No Have you or anyone in your house had to go without enough: No Transportation Issues: No Has anyone in your support network made you feel unsafe?: No - Physical Exam Vital Signs: Vital Signs - 24 hr Pulse Resp BP Pulse Ox 03/10/24 06:30 78 18 137/92 96 03/10/24 06:00 77 18 126/83 96 03/10/24 05:31 80 19 140/78 97 03/10/24 05:00 87 21 159/112 96 03/10/24 04:30 92 H 24 143/98 96 03/10/24 04:25 81 22 140/94 96 03/10/24 04:24 88 20 97 03/10/24 03:30 137/104 03/10/24 03:00 90 19 128/91 93 L 03/10/24 02:30 90 19 133/86 93 L 03/10/24 02:22 96 H 23 138/87 94 L 03/10/24 02:00 144/96 03/10/24 01:30 96 H 21 140/97 95 General Appearance: no apparent distress, alert Neurologic Exam: alert, oriented x 3, cooperative, normal mood/affect, nml cerebellar function, nml station & gait, sensation nml, No motor deficits Eye Exam: PERRL/EOMI, eyes nml inspection Ears, Nose, Throat Exam: normal ENT inspection, TMs normal, pharynx normal, moist mucous membranes Neck Exam: normal inspection, non-tender, supple, full range of motion Respiratory Exam: normal breath sounds, lungs clear, No respiratory distress Cardiovascular Exam: regular rate/rhythm, normal heart sounds, normal peripheral pulses Gastrointestinal/Abdomen Exam: soft, normal bowel sounds, tenderness, No mass Back Exam: normal inspection, normal range of motion, No CVA tenderness, No vertebral tenderness Extremity Exam: normal inspection, normal range of motion, pelvis stable Skin Exam: normal color, warm, dry, No rash Lymphatic Exam: No adenopathy Results - Labs Lab/Micro Results: Lab Results-Last 24 Hours 03/10/24 03/10/24 03/10/24 Range/Units 02:05 02:05 03:11 WBC 8.7 (4.23-9.07) x10^3/uL RBC 6.36 H (4.63-6.08) x10^6/uL Hgb 18.5 H (13.7-17.5) g/dL Hct 53.5 H (40.1-51.0) % MCV 84.1 (79.0-92.2) fL MCH 29.1 (25.7-32.2) pg MCHC 34.6 (32.3-36.5) g/dL RDW 12.5 (11.6-14.4) % Plt Count 268 (163-337) x10^3/uL MPV 10.5 (9.4-12.4) fL Gran % 76.2 H (34.0-67.9) % Immature Gran % (Auto) 0.8 H (0.001-0.429) % Nucleat RBC Rel Count 0.0 (0.00-0.2) % Eos # (Auto) 0.06 (0.04-0.54) x10^3/uL Immature Gran # (Auto) 0.07 H (0.001-0.031) x10^3u/L Absolute Lymphs (auto) 1.37 (1.32-3.57) x10^3/uL Absolute Monos (auto) 0.50 (0.30-0.82) x10^3/uL Absolute Nucleated RBC 0.00 (0.00-0.012) x10^3u/L Lymphocytes % 15.8 L (21.8-53.1) % Monocytes % 5.8 (5.3-12.2) % Eosinophils % 0.7 L (0.8-7.0) % Basophils % 0.7 (0.2-1.2) % Absolute Granulocytes 6.59 H (1.78-5.38) x10^3/uL Basophils # 0.06 (0.01-0.08) x10^3/uL Sodium 138 (135-145) mmol/L Potassium 4.1 (3.5-5.1) mmol/L Chloride 104 (98-107) mmol/L Carbon Dioxide 18 L (22-30) mmol/L Anion Gap 19.0 H (5-15) MEQ/L BUN 14 (9-20) mg/dL Creatinine 1.14 (0.66-1.25) mg/dL Estimated GFR 83.9 ML/MIN Glucose 98 (74-106) mg/dL Calcium 9.6 (8.4-10.2) mg/dL Total Bilirubin 1.40 H (0.2-1.3) mg/dL AST 42 (17-59) U/L ALT 58 H (0-50) U/L Alkaline Phosphatase 57 (38-126) U/L Serum Total Protein 7.5 (6.3-8.2) g/dL Albumin 4.6 (3.5-5.0) g/dL Amylase 43 (30-110) U/L Lipase 34 (23-300) U/L Urine Color Dark Yellow (Yellow) Urine Appearance Clear (Clear) Urine pH 5.0 (4.6-8.0) Ur Specific [place] 1.025 (1.005-1.030) Urine Protein Trace A (Negative) Urine Glucose (UA) Negative (Negative) mg/dL Urine Ketones Trace A (Negative) Urine Blood Negative (Negative) Urine Nitrite Negative (Negative) Urine Bilirubin Negative (Negative) Urine Urobilinogen 1.0 A (0.2) mg/dL Ur Leukocyte Esterase Negative (Negative) U Hyaline Cast (Auto) NONE SEEN (0-2) /LPF Urine Microscopic RBC 0-2 (0-5) /HPF Urine Microscopic WBC 0-2 (0-5) /HPF Ur Epithelial Cells None Seen (None Seen) /HPF Urine Bacteria None Seen (None Seen) /HPF Urine Culture Reflexed NO (NO) - Radiology Impressions Radiology Exams & Impressions: Radiology Procedures Category Date Time Status ABDOMEN AND PELVIS W/0 CONTRAS [CT] Stat Exams 03/10/24 01:52 Completed Assessment/Plan (1) Small bowel obstruction Current Visit: Yes Status: Acute Assessment & Plan: - NPO - IVF - GS consult - CBC, CMP reviewed - CT abd/Pelvis IMPRESSION: Hepatic steatosis. Dilated ileal loops (diameter up to 3.7 cm) with air fluid level and small bowel feces sign present, with intervening collapsed ileal loop segments. Likely small bowel obstruction due to inflammatory etiology (sequelae of inflammatory bowel disease). Advised clinical correlation and further evaluation. Code(s): K56.609 - UNSP INTESTNL OBST, UNSP TO PARTIAL VERSUS COMPLETE OBST (2) Obesity (BMI 30-39.9) Current Visit: Yes Status: Chronic Assessment & Plan: - advised diet and exercise control Code(s): E66.9 - OBESITY, UNSPECIFIED (3) GERD (gastroesophageal reflux disease) Current Visit: Yes Status: Chronic Assessment & Plan: - Protonix IV for now while NPO Code(s): K21.9 - GASTRO-ESOPHAGEAL REFLUX DISEASE WITHOUT ESOPHAGITIS (4) IBS (irritable bowel syndrome) Current Visit: Yes Status: Chronic Assessment & Plan: - adds to complexity (5) ADD (attention deficit disorder) Current Visit: Yes Status: Chronic Assessment & Plan: - meds held as NPO Code(s): F98.8 - OTH BEHAV/EMOTN DISORD W ONSET USLY OCCUR IN CHLDHD AND ADOL (6) Hepatic steatosis Current Visit: Yes Status: Acute Assessment & Plan: - as seen on CT abd/pelvis - Follows GI in [place] VTE: SCD's PPI: Protonix Next of KIN: MOther D/C plan: 1-2 days Code status: full Code(s): K76.0 - FATTY (CHANGE OF) LIVER, NOT ELSEWHERE CLASSIFIED
[2024-03-10] MEDS: Hydromorphone 1 mg/ml Injection IV PRN (09:34)
[2024-03-10 14:41] LABS: INFLUENZA A NEGATIVE (NEGATIVE); INFLUENZA B NEGATIVE (NEGATIVE); RESPIRATORY SYNCTIAL VIRUS NEGATIVE (NEGATIVE); SARS-CoV-2 Xpert Express NEGATIVE (NEGATIVE)
[2024-03-10] MEDS: PROTONIX 40 MG IV IV SCH (16:53)
[2024-03-11 04:58] LABS: Absolute Neutrophil Ct (ANC) 11.58 x10^3/uL (1.78-5.38); BASOPHIL % 0.1 % (0.2-1.2); Basophil (Absolute #) 0.02 x10^3/uL (0.01-0.08); Eosinophil (Absolute #) 0 x10^3/uL (0.04-0.54); Hematocrit 47.7 % (40.1-51.0); Hemoglobin 16.6 g/dL (13.7-17.5); IMMATURE GRAN # 0.09 x10^3u/L (0.001-0.031); IMMATURE GRAN % 0.6 % (0.001-0.429); Lymphocyte (Absolute #) 1.99 x10^3/uL (1.32-3.57); Lymphocytes % 13.6 % (21.8-53.1); Mean Cell Volume 84.1 fL (79.0-92.2); Mean Corpuscular Hemoglobin 29.3 pg (25.7-32.2); Mean Corpuscular Hgb Concent. 34.8 g/dL (32.3-36.5); Mean Platelet Volume 9.9 fL (9.4-12.4); Monocyte (Absolute #) 0.99 x10^3/uL (0.30-0.82); Monocytes % 6.7 % (5.3-12.2); Platelet Count 266 x10^3/uL (163-337); Red Blood Count 5.67 x10^6/uL (4.63-6.08); White Blood Count 14.7 x10^3/uL (4.23-9.07)
[2024-03-11 05:15] LABS: ALBUMIN 4.3 g/dL (3.5-5.0); BILIRUBIN,TOTAL 0.7 mg/dL (0.2-1.3); Calcium 9.4 mg/dL (8.4-10.2); Creatinine 1 0.94 mg/dL (0.66-1.25); EST GLOMERULAR FILTRATION RATE 105.8 ML/MIN; Potassium 4.3 mmol/L (3.5-5.1)
--- NOTE | 2024-03-11 09:55 | XRAY ---
Indication: Abdomen pain. Comparison: None KUB nonacute and nonobstructed. Solid organs and osseous structures unremarkable.
[2024-03-11] MEDS: NICODERM CQ 14 MG TOP SCH (10:06)
[2024-03-11] MEDS ORDERED: NORCO 7.5/325 MG TAB PO PRN (10:37)
--- NOTE | 2024-03-11 10:43 | PCM.DS ---
Discharge Summary Date of Admission: 03/10/24 06:53 Date of Discharge: 03/11/24 Admitting Physician: JOSÉ MIGUEL PLEITEZ MD Consults: Consults on Case 03/10/24 07:00 Consult Surgery ROUTINE Primary Care Provider: RACHELE CHAVIS Allergies Allergies baclofen Allergy (Verified 12/21/23 23:21) Benzodiazepines Allergy (Verified 12/21/23 23:21) citalopram [From Celexa] Allergy (Verified 12/21/23 23:21) Hospital Summary - Hospital Course Hospital Course: 03/10/24 is a 39 year old male with PMHX of irritable bowel syndrome, chronic low back pain, ADD, and gastroesophageal reflux disease. Patient arrived to the emergency department today by private vehicle with complaint of left lower quad abdominal pain with no vomiting or nausea but mild diarrheal episodes. Sxs started 12 pm Thursday. He has not ate or drank since. He could not stand the pain any longer so came to the hospital. Patient denies fever, cough, chest pain, shortness of breath. He does not have bodyaches- Flu/COVID/RSV pending. Patient has had 5 colonoscopies in the past but no other intra-abdominal procedures. He reports a strong family hx of colorectal cancer and has had colonoscopies Q3 yrs. He is resting comfortably in the bed. Surgery consulted. IVF started and made NPO. PRN pain meds added. He denies any further concerns at this time. 03/11/24 Pt resting in bed. He obtained IV pain meds all night for LUQ pain. Surgery started him on a regular diet last night. He tolerated that well. This AM he again ate a regular diet w/o concerns. KUB shows no bowel obstruction or concern. Advised pt to make appointment with his GI OP. Encouraged oral hydration at home. He denies any further concerns at this time. - Vitals & Intake/Output Vital Signs: Vital Signs Temperature 97.6 F 03/11/24 08:00 Pulse Rate 89 03/11/24 08:00 Respiratory Rate 22 03/11/24 08:00 Blood Pressure 125/59 03/11/24 08:00 O2 Sat by Pulse Oximetry 94 L 03/11/24 08:00 Intake & Output: Intake & Output 03/08/24 03/09/24 03/10/24 03/11/24 11:59 11:59 11:59 11:59 Intake Total 3462 Balance 3462 Weight 142.3 kg - Lab Result Diagrams: 03/11/24 04:59 03/11/24 04:59 Lab Results-Last 24 Hrs: Lab Results-Last 24 Hours 03/10/24 03/11/24 03/11/24 Range/Units 14:00 04:59 04:59 WBC 14.7 H (4.23-9.07) x10^3/uL RBC 5.67 (4.63-6.08) x10^6/uL Hgb 16.6 (13.7-17.5) g/dL Hct 47.7 (40.1-51.0) % MCV 84.1 (79.0-92.2) fL MCH 29.3 (25.7-32.2) pg MCHC 34.8 (32.3-36.5) g/dL RDW 12.0 (11.6-14.4) % Plt Count 266 (163-337) x10^3/uL MPV 9.9 (9.4-12.4) fL Gran % 79.0 H (34.0-67.9) % Immature Gran % (Auto) 0.6 H (0.001-0.429) % Nucleat RBC Rel Count 0.0 (0.00-0.2) % Eos # (Auto) 0 L (0.04-0.54) x10^3/uL Immature Gran # (Auto) 0.09 H (0.001-0.031) x10^3u/L Absolute Lymphs (auto) 1.99 (1.32-3.57) x10^3/uL Absolute Monos (auto) 0.99 H (0.30-0.82) x10^3/uL Absolute Nucleated RBC 0.00 (0.00-0.012) x10^3u/L Lymphocytes % 13.6 L (21.8-53.1) % Monocytes % 6.7 (5.3-12.2) % Eosinophils % 0.0 L (0.8-7.0) % Basophils % 0.1 L (0.2-1.2) % Absolute Granulocytes 11.58 H (1.78-5.38) x10^3/uL Basophils # 0.02 (0.01-0.08) x10^3/uL Sodium 137 (135-145) mmol/L Potassium 4.3 (3.5-5.1) mmol/L Chloride 106 (98-107) mmol/L Carbon Dioxide 20 L (22-30) mmol/L Anion Gap 16.0 H (5-15) MEQ/L BUN 14 (9-20) mg/dL Creatinine 0.94 (0.66-1.25) mg/dL Estimated GFR 105.8 ML/MIN Glucose 137 H (74-106) mg/dL Calcium 9.4 (8.4-10.2) mg/dL Total Bilirubin 0.70 (0.2-1.3) mg/dL AST 34 (17-59) U/L ALT 50 (0-50) U/L Alkaline Phosphatase 51 (38-126) U/L Serum Total Protein 7.0 (6.3-8.2) g/dL Albumin 4.3 (3.5-5.0) g/dL Influenza Type A Ag NEGATIVE (NEGATIVE) Influenza Type B Ag NEGATIVE (NEGATIVE) RSV (PCR) NEGATIVE (NEGATIVE) SARS-CoV-2 (PCR) NEGATIVE (NEGATIVE) - Radiology Exams Ordered Rad Exams-Entire Visit: Radiology Procedures Category Date Time Status ABDOMEN AND PELVIS W/0 CONTRAS [CT] Stat Exams 03/10/24 01:52 Completed KUB Stat Exams 03/11/24 09:13 Completed Discharge Exam General Appearance: no apparent distress, alert Neurologic Exam: alert, oriented x 3, cooperative, normal mood/affect, nml cerebellar function, sensation nml, No motor deficits Eye Exam: PERRL, EOMI, eyes nml inspection Ears, Nose, Throat Exam: normal ENT inspection, pharynx normal, moist mucous membranes Neck Exam: normal inspection, non-tender, supple, full range of motion Respiratory Exam: normal breath sounds, lungs clear, No respiratory distress Cardiovascular Exam: regular rate/rhythm, normal heart sounds Gastrointestinal/Abdomen Exam: soft, tenderness (LUQ), No mass Male Genitalia Exam: deferred Rectal Exam: deferred Back Exam: normal inspection, normal range of motion, No CVA tenderness, No vertebral tenderness Extremity Exam: normal inspection, normal range of motion Skin Exam: normal color, warm, dry Final Diagnosis/Problem List - Final Discharge Diagnosis/Problem (1) Small bowel obstruction Current Visit: Yes Status: Acute Code(s): K56.609 - UNSP INTESTNL OBST, UNSP TO PARTIAL VERSUS COMPLETE OBST (2) Obesity (BMI 30-39.9) Current Visit: Yes Status: Chronic Code(s): E66.9 - OBESITY, UNSPECIFIED (3) GERD (gastroesophageal reflux disease) Current Visit: Yes Status: Chronic Code(s): K21.9 - GASTRO-ESOPHAGEAL REFLUX DISEASE WITHOUT ESOPHAGITIS (4) IBS (irritable bowel syndrome) Current Visit: Yes Status: Chronic (5) ADD (attention deficit disorder) Current Visit: Yes Status: Chronic Code(s): F98.8 - OTH BEHAV/EMOTN DISORD W ONSET USLY OCCUR IN CHLDHD AND ADOL (6) Hepatic steatosis Current Visit: Yes Status: Acute Assessment & Plan: (1) Small bowel obstruction Current Visit: Yes Status: Acute Assessment & Plan: - NPO - IVF - GS consult - CBC, CMP reviewed - CT abd/Pelvis IMPRESSION: Hepatic steatosis. Dilated ileal loops (diameter up to 3.7 cm) with air fluid level and small bowel feces sign present, with intervening collapsed ileal loop segments. Likely small bowel obstruction due to inflammatory etiology (sequelae of inflammatory bowel disease). Advised clinical correlation and further evaluation. 03/11 - started on regular diet by GS last night - had IV pain meds all night - Stopped IV pain meds this AM as was able to eat a regular diet w/o concern - KUB: KUB nonacute and nonobstructed. Solid organs and osseous structures unremarkable. Code(s): K56.609 - UNSP INTESTNL OBST, UNSP TO PARTIAL VERSUS COMPLETE OBST (2) Obesity (BMI 30-39.9) Current Visit: Yes Status: Chronic Assessment & Plan: - advised diet and exercise control Code(s): E66.9 - OBESITY, UNSPECIFIED (3) GERD (gastroesophageal reflux disease) Current Visit: Yes Status: Chronic Assessment & Plan: - Protonix IV for now while NPO Code(s): K21.9 - GASTRO-ESOPHAGEAL REFLUX DISEASE WITHOUT ESOPHAGITIS (4) IBS (irritable bowel syndrome) Current Visit: Yes Status: Chronic Assessment & Plan: - adds to complexity (5) ADD (attention deficit disorder) Current Visit: Yes Status: Chronic Assessment & Plan: - meds held as NPO Code(s): F98.8 - OTH BEHAV/EMOTN DISORD W ONSET USLY OCCUR IN CHLDHD AND ADOL (6) Hepatic steatosis Current Visit: Yes Status: Acute Assessment & Plan: - as seen on CT abd/pelvis - Follows GI in [place] Code(s): K76.0 - FATTY (CHANGE OF) LIVER, NOT ELSEWHERE CLASSIFIED - Discharge Discharge Date: 03/11/24 Disposition: Home, Self-Care Condition: Stable Prescriptions: Continue Dextroamphetamine/Amphetamine [Adderall Xr 20 mg Capsule] 20 mg PO TID Omeprazole 40 mg PO BID Albuterol Sulfate [Proair Respiclick] 90 mcg IH DAILY PRN PRN Reason: cough syncope Gabapentin 300 mg PO DAILY 90 Days #90 cap Hydrocodone/Acetaminophen [Hydrocodone-Acetamin 7.5-325] 1 tab PO UD PRN PRN Reason: Pain Additional Instructions: F/U with GI Follow up with: RACHELE CHAVIS [Primary Care Provider] -
[2024-03-11] MEDS ORDERED: VENTOLIN COMMON CANISTER IH PRN (10:54)
[2024-03-11] MEDS ORDERED: MEDICATION INTERVENTION MC SCH (12:00)
[2024-03-11 12:29] VITALS: BP 143/75; PULSE 71; RESP 20; TEMP 97; O2SAT 97
[2024-03-11] MEDS: NEURONTIN PO SCH (13:01)
[2024-03-11] MEDS ORDERED: AMPHETAMINE PO SCH (15:00)
[2024-03-11] MEDS ORDERED: [UNRECOGNIZED DRUG - OTHER] PO SCH (15:00)
[2024-03-11] MEDS ORDERED: DEXTROAMPHETAMINE PO SCH (15:00)
[2024-03-11] MEDS ORDERED: Protonix 40MG Tablet PO SCH (22:00)
== END 2024-03-11 13:09 | disposition home or self-care (01) ==
LOC: ED 00:52 → MED SURG 06:53
PROVIDERS: ADMIT Internal Medicine; ATTEND Internal Medicine
DX: K56.609 Unspecified intestinal obstruction, unspecified as to partial versus complete obstruction (principal); E66.9 Obesity, unspecified; K21.9 Gastro-esophageal reflux disease without esophagitis; K58.9 Irritable bowel syndrome, unspecified; F98.8 Other specified behavioral and emotional disorders with onset usually occurring in childhood and adolescence; K76.0 Fatty (change of) liver, not elsewhere classified; Z79.899 Other long term (current) drug therapy
CPT/HCPCS: 0241U; 36415; 74018; 74176; 80053; 81001; 82150; 83690; 85025; 96360; 96372; 96374; 96375; 99285; G0378; Q3014; J1171; J1885; J2405; J2919; A9270-GY